=== PATIENT | male | born 1950 | race Caucasian/White ===

== ENCOUNTER 2020-09-07 05:48 | Emergency (ER) | payer MEDICARE, BC ==
[2020-09-07] MEDS ORDERED: Cyclobenzaprine 10 MG Tab PO ONE (06:32)
[2020-09-07] MEDS ORDERED: Ketorolac 60 MG/2 ML SDV IM ONE (06:32)
[2020-09-07] MEDS ORDERED: Acetaminophen 500 MG Tab PO ONE (06:50)
--- NOTE | 2020-09-07 06:57 | EDM.PDOC ---
ED HPI GENERAL MEDICAL PROBLEM - General Chief Complaint: Back Pain or Injury Stated Complaint: BACK PAIN Time Seen by Provider: 09/07/20 06:15 Source of Information: Reports: Patient History Limitations: Reports: No Limitations - History of Present Illness INITIAL COMMENTS - FREE TEXT/NARRATIVE: Patient presented to the ED because of low back pain which started 2 weeks ago. The pain is sharp, 8/10, worse with bending and movements.There is no recent trauma and injury. He has been taking flexeril and tylenol with mild relief and he ran out of oxycodone which helped him a lot. Lower back pain Pain Score (Numeric/FACES): 7 - Related Data Allergies Allergy/AdvReac Type Severity Reaction Status Date / Time No Known Allergies Allergy Verified 09/07/20 05:59 Home Meds: Home Meds Aspirin [Ecotrin EC] 81 mg PO DAILY 09/07/20 [History] Chlorthalidone 25 mg PO BEDTIME 09/07/20 [History] Cyclobenzaprine [Flexeril] 10 mg PO BID PRN #30 tab 09/07/20 [Rx] Ezetimibe 10 mg PO BEDTIME 09/07/20 [History] Gabapentin [Neurontin] 100 mg PO Q6HR PRN 09/07/20 [History] Insulin Detemir [Levemir Flextouch] 10 units BEDTIME 09/07/20 [History] Insulin Detemir [Levemir Flextouch] 15 units DAILY 09/07/20 [History] Liraglutide [Victoza] 18 units BEDTIME 09/07/20 [History] Metoprolol Succinate [Toprol XL 100mg] 100 mg BEDTIME 09/07/20 [History] Naproxen 500 mg PO BID PRN #30 tablet 09/07/20 [Rx] Simvastatin 40 mg PO BEDTIME 09/07/20 [History] SitaGLIPtin [Januvia] 100 mg PO BEDTIME 09/07/20 [History] amLODIPine [Norvasc] 5 mg PO DAILY 09/07/20 [History] glipiZIDE [Glucotrol XL] 10 mg PO BID 09/07/20 [History] lisinopriL [Lisinopril] 40 mg PO DAILY 09/07/20 [History] oxyCODONE 5 mg PO Q4H PRN #15 tab 09/07/20 [Rx] Past Medical History HEENT History: Reports: Hard of Hearing Cardiovascular History: Reports: High Cholesterol, Hypertension, PVD Genitourinary History: Reports: None Musculoskeletal History: Reports: Arthritis, Back Pain, Chronic Neurological History: Reports: Neuropathy, Diabetic Psychiatric History: Reports: Anxiety, Depression Endocrine/Metabolic History: Reports: Diabetes, Type II - Infectious Disease History Infectious Disease History: Reports: Chicken Pox, Measles, Mumps - Past Surgical History Cardiovascular Surgical History: Reports: Vascular Surgery Other Cardiovascular Surgeries/Procedures: stents placed to R leg GI Surgical History: Reports: Colonoscopy, Hernia Repair/Other Male Surgical History: Reports: Circumcision Musculoskeletal Surgical History: Reports: None Social & Family History - Family History Family Medical History: No Pertinent Family History - Tobacco Use Tobacco Use Status *Q: Current Every Day Tobacco User Years of Tobacco use: 20 Packs/Tins Daily: 0.5 - Caffeine Use Caffeine Use: Reports: Coffee, Soda - Recreational Drug Use Recreational Drug Use: No ED ROS GENERAL - Review of Systems Review Of Systems: See Below Constitutional: Reports: No Symptoms HEENT: Reports: No Symptoms Respiratory: Reports: No Symptoms Cardiovascular: Reports: No Symptoms Endocrine: Reports: No Symptoms GI/Abdominal: Reports: No Symptoms : Reports: No Symptoms Musculoskeletal: Reports: Back Pain Neurological: Reports: No Symptoms Psychiatric: Reports: No Symptoms ED EXAM,LOWER BACK PAIN/INJURY - Physical Exam Exam: See Below Exam Limited By: No Limitations General Appearance: Alert, No Apparent Distress Eye Exam: Bilateral Eye: PERRL Ears: Normal External Exam, Normal Canal Nose: Normal Inspection, Normal Mucosa Throat/Mouth: Normal Inspection, Normal Lips Head: Atraumatic, Normocephalic Neck: Normal Inspection, Supple, Non-Tender, Full Range of Motion Respiratory/Chest: No Respiratory Distress, Lungs Clear, Normal Breath Sounds Cardiovascular: Normal Peripheral Pulses, Regular Rate, Rhythm, No Edema GI/Abdominal: Normal Bowel Sounds, Soft, Non-Tender, No Organomegaly Back Exam: Muscle Spasm, Vertebral Tenderness Extremities: Normal Inspection, Normal Range of Motion, Non-Tender Course - Vital Signs Text/Narrative:: Toradol 60 mg IM x1 Tylenol 1000 mg po x1 Flexeril 10 mg po x1 Last Recorded V/S: Last Vital Signs Temp 36.4 C 09/07/20 05:50 Pulse 62 09/07/20 07:10 Resp 20 09/07/20 07:10 BP 162/98 H 09/07/20 07:10 Pulse Ox 97 09/07/20 07:10 - Orders/Labs/Meds Meds: Medications Discontinued Medications Generic Name Dose Route Start Last Admin Trade Name Joceline PRN Reason Stop Dose Admin Acetaminophen 1,000 mg 09/07/20 06:50 09/07/20 07:13 Tylenol Extra Strength PO 09/07/20 06:51 1,000 mg ONETIME ONE Administration Cyclobenzaprine HCl 10 mg 09/07/20 06:32 09/07/20 06:39 Flexeril PO 09/07/20 06:33 10 mg ONETIME ONE Administration Ketorolac Tromethamine 60 mg 09/07/20 06:32 09/07/20 06:38 Toradol IM 09/07/20 06:33 60 mg ONETIME ONE Administration Departure - Departure Time of Disposition: 07:00 Disposition: Home, Self-Care 01 Condition: Good Clinical Impression: Low back pain, Radiculopathy - Discharge Information Prescriptions: Cyclobenzaprine [Flexeril] 10 mg PO BID PRN #30 tab PRN Reason: Spasms Naproxen 500 mg PO BID PRN #30 tablet PRN Reason: Pain oxyCODONE 5 mg PO Q4H PRN #15 tab PRN Reason: Pain Instructions: Radicular Pain, Acute Back Pain, Adult Referrals: PCP,None [Primary Care Provider] - Forms: ED Department Discharge Additional Instructions: Please read discharge instructions on low back pain Taake the follow ing medications all at the same time for better pain relief Naproxen 500 mg,tylenol 1000, flexeril 10 mg twice daily for 7 days then as needed Oxycocone 5 mg, 1-2 tablets every 4- 6 hours as needed for pain that you can't tolerate Follow up with your doctor this week, you might need an MRI of your back Sepsis Event Note (ED) - Evaluation Sepsis Screening Result: No Definite Risk
== END 2020-09-07 07:20 | disposition home or self-care (01) ==
LOC: FB.ED 05:48
DX: M54.16 Radiculopathy, lumbar region (principal); E78.00 Pure hypercholesterolemia, unspecified; I10 Essential (primary) hypertension; E11.40 Type 2 diabetes mellitus with diabetic neuropathy, unspecified; E11.51 Type 2 diabetes mellitus with diabetic peripheral angiopathy without gangrene; Z72.0 Tobacco use; Z79.82 Long term (current) use of aspirin; Z79.4 Long term (current) use of insulin; Z79.899 Other long term (current) drug therapy
CPT/HCPCS: 96372; 99283; A9270-GY; J1885